=== PATIENT | male | born 1975 | race Caucasian/White ===

== ENCOUNTER 2020-07-12 00:57 | Emergency (ER) | payer OTHER ==
[2020-07-12 02:33] LABS: Absolute Lymphocytes (CBC) 2.7 K/uL (0.7-4.9); Basophils % 0.7 % (0-1.3); Hematocrit 44.1 % (39.6-49.0); Lymphocytes % 35.9 % (15.3-44.8); MPV 8.6 fL (7.6-11.3); RBC Red Blood Cell Count 4.86 M/uL (4.33-5.43)
[2020-07-12 02:42] LABS: Protime INR 0.85
[2020-07-12] MEDS ORDERED: METOPROLOL TAR 50 MG TAB ONE (02:42)
[2020-07-12] MEDS ORDERED: NA CHLORIDE 0.9% 1,000 ML ONE (02:42)
[2020-07-12] MEDS ORDERED: ASPIRIN 81 MG CHEWABLE TABLET ONE (02:42)
[2020-07-12 03:19] LABS: ALT/SGPT 77 U/L (12-78); Albumin 3.6 g/dL (3.4-5.0); Alkaline Phosphatase 113 U/L (45-117); BUN Blood Urea Nitrogen 12 mg/dL (7-18); Bicarbonate 25 mmol/L (21-32); Bilirubin Direct < 0.1 mg/dL (0-0.2); Bilirubin Total 0.2 mg/dL (0.2-1.0); Glucose Level 121 mg/dL (74-106); Lipase 139 U/L (73-393); Protein, Total 6.9 g/dL (6.4-8.2); Sodium Level 139 mmol/L (136-145); Troponin (Emerg Dept Use Only) < 0.02 ng/mL (0.0-0.045)
[2020-07-12 03:21] LABS: AST/SGOT 36 U/L (15-37); Magnesium 2.1 mg/dL (1.8-2.4); NT PRO-BNP < 5 pg/mL (<125); Potassium 3.9 mmol/L (3.5-5.1)
--- NOTE | 2020-07-12 03:48 | EDPHYS ---
Physician Documentation [facility] Name: Johnathon Barger Age: 44 yrs Sex: Male : 1975 Arrival Date: 07/12/2020 Time: 01:01 Bed 19 Private MD: ED Physician Ezio Rodriguez HPI: 07/12 02:08 This 44 yrs old Male presents to ER via EMS with complaints of Dizziness. lin 02:08 The patient presents with dizziness, generalized weakness. Onset: The symptoms/episode lin began/occurred this morning, today. Context: occurred at home. Modifying factors: The symptoms are alleviated by nothing, the symptoms are aggravated by nothing. Associated signs and symptoms: The patient has no apparent associated signs or symptoms. Severity of symptoms: At their worst the symptoms were mild in the emergency department the symptoms are unchanged. Patient's baseline: Neuro: alert and fully oriented. The patient has not experienced similar symptoms in the past. Historical: - Allergies: 01:05 No Known Allergies; sg - PMHx: 01:05 Hypertension; sg - Immunization history:: Adult Immunizations up to date. - Social history:: Patient uses alcohol, Smoking status: unknown. - Family history:: not pertinent. ROS: 02:08 Constitutional: Negative for fever, chills, and weight loss, Eyes: Negative for injury, lni pain, redness, and discharge, ENT: Negative for injury, pain, and discharge, Neck: Negative for injury, pain, and swelling, Cardiovascular: Negative for chest pain, palpitations, and edema, Respiratory: Negative for shortness of breath, cough, wheezing, and pleuritic chest pain, Abdomen/GI: Negative for abdominal pain, nausea, vomiting, diarrhea, and constipation, Back: Negative for injury and pain, : Negative for injury, bleeding, discharge, and swelling, MS/Extremity: Negative for injury and deformity, Skin: Negative for injury, rash, and discoloration, Psych: Negative for depression, anxiety, suicide ideation, homicidal ideation, and hallucinations, Allergy/Immunology: Negative for hives, rash, and allergies, Endocrine: Negative for neck swelling, polydipsia, polyuria, polyphagia, and marked weight changes, Hematologic/Lymphatic: Negative for swollen nodes, abnormal bleeding, and unusual bruising. 02:08 Neuro: Positive for weakness. Exam: 02:08 Constitutional: This is a well developed, well nourished patient who is awake, alert, lin and in no acute distress. Head/Face: Normocephalic, atraumatic. Eyes: Pupils equal round and reactive to light, extra-ocular motions intact. Lids and lashes normal. Conjunctiva and sclera are non-icteric and not injected. Cornea within normal limits. Periorbital areas with no swelling, redness, or edema. ENT: Nares patent. No nasal discharge, no septal abnormalities noted. Tympanic membranes are normal and external auditory canals are clear. Oropharynx with no redness, swelling, or masses, exudates, or evidence of obstruction, uvula midline. Mucous membranes moist. Neck: Trachea midline, no thyromegaly or masses palpated, and no cervical lymphadenopathy. Supple, full range of motion without nuchal rigidity, or vertebral point tenderness. No Meningismus. Chest/axilla: Normal chest wall appearance and motion. Nontender with no deformity. No lesions are appreciated. Cardiovascular: Regular rate and rhythm with a normal S1 and S2. No gallops, murmurs, or rubs. Normal PMI, no JVD. No pulse deficits. Respiratory: Lungs have equal breath sounds bilaterally, clear to auscultation and percussion. No rales, rhonchi or wheezes noted. No increased work of breathing, no retractions or nasal flaring. Abdomen/GI: Soft, non-tender, with normal bowel sounds. No distension or tympany. No guarding or rebound. No evidence of tenderness throughout. Back: No spinal tenderness. No costovertebral tenderness. Full range of motion. Male : Normal genitalia with no discharge or lesions. Skin: Warm, dry with normal turgor. Normal color with no rashes, no lesions, and no evidence of cellulitis. MS/ Extremity: Pulses equal, no cyanosis. Neurovascular intact. Full, normal range of motion. Neuro: Awake and alert, GCS 15, oriented to person, place, time, and situation. Cranial nerves II-XII grossly intact. Motor strength 5/5 in all extremities. Sensory grossly intact. Cerebellar exam normal. Normal gait. Psych: Awake, alert, with orientation to person, place and time. Behavior, mood, and affect are within normal limits. 02:46 ECG was reviewed by the Attending Physician. [facility] Vital Signs: 01:03 BP 132 / 80; Pulse 88; Resp 16; Temp 97.7(O); Pulse Ox 100% on R/A; sg 02:30 BP 133 / 85; Pulse 89; Resp 17; Pulse Ox 98% ; rr5 03:50 BP 114 / 76; Pulse 69; Resp 16; Pulse Ox 98% ; rr5 MDM: 02:00 Patient medically screened. [facility] 02:10 Differential diagnosis: cardiac arrhythmia, generalized weakness, hypovolemia, lin idiopathic dizziness, near-syncope, syncope. Data reviewed: vital signs, nurses notes, lab test result(s), EKG, radiologic studies, plain films. 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 Test interpretation: by ED physician or midlevel provider: ECG, plain radiologic studies. Counseling: I had a detailed discussion with the patient and/or guardian regarding: the historical points, exam findings, and any diagnostic results supporting the discharge/admit diagnosis, the presence of at least one elevated blood pressure reading (>120/80) during this emergency department visit, lab results, radiology results, the need for outpatient follow up. 07/12 02:08 Order name: Basic Metabolic Panel [facility] 07/12 02:08 Order name: CBC with Diff [facility] 07/12 02:08 Order name: LFT's [facility] 07/12 02:08 Order name: Magnesium; Complete Time: 03:47 [facility] 07/12 02:08 Order name: NT PRO-BNP; Complete Time: 03:47 [facility] 07/12 02:08 Order name: PT-INR; Complete Time: 03:01 [facility] 07/12 02:08 Order name: Troponin (emerg Dept Use Only); Complete Time: 03:47 [facility] 07/12 02:08 Order name: XRAY Chest (1 view) [facility] 07/12 02:08 Order name: Lipase; Complete Time: 03:47 [facility] 07/12 02:08 Order name: TSH; Complete Time: 03:47 [facility] 07/12 02:08 Order name: Basic Metabolic Panel; Complete Time: 03:47 EDMS 07/12 02:08 Order name: CBC with Automated Diff; Complete Time: 02:44 EDMS 07/12 02:08 Order name: Liver (Hepatic) Function; Complete Time: 03:47 EDMS 07/12 02:08 Order name: EKG; Complete Time: 02: [facility] 07/12 02:08 Order name: Cardiac monitoring; Complete Time: [facility] 07/12 02:08 Order name: EKG - Nurse/Tech; Complete Time: [facility] 07/12 02:08 Order name: IV Saline Lock; Complete Time: [facility] 07/12 02:08 Order name: Labs collected and sent; Complete Time: [facility] 07/12 02:08 Order name: O2 Per Protocol; Complete Time: [facility] 07/12 02:08 Order name: O2 Sat Monitoring; Complete Time: [facility] EC:46 Rate is 91 beats/min. Rhythm is regular. QRS [place] is Normal. ME interval is normal. QRS lin interval is normal. QT interval is normal. No Q waves. T waves are Normal. No ST changes noted. Clinical impression: Normal ECG and No evidence of ischemia. Interpreted by me. Reviewed by me. Administered Medications: 02: Drug: NS 0.9% 1000 ml Route: IV; Rate: 1 bolus; Site: right forearm; rr5 03:30 Follow up: Response: No adverse reaction; IV Status: Completed infusion; IV Intake: rr5 1000ml 02:28 Drug: Aspirin Chewable Tablet 324 mg Route: PO; rr5 03:25 Follow up: Response: No adverse reaction rr5 02:29 Drug: Lopressor (metoprolol TARTRATE) 50 mg Route: PO; rr5 03:30 Follow up: Response: No adverse reaction; Blood pressure is lowered rr5 Disposition: 07/12/20 03:47 Discharged to Home. Impression: Dizziness and giddiness, Palpitations. - Condition is Stable. - Discharge Instructions: Dizziness, Palpitations, Aspirin and Your Heart, Palpitations, [id number]-[id number], Dizziness, Lumk-wv-Oemw. - Prescriptions for Meclizine 25 mg Oral Tablet - take 1 tablet by ORAL route every 8 hours As needed; 30 tablet. Toprol XL 25 mg Oral Tablet - take 1 tablet by ORAL route once daily; 20 tablet. - Medication Reconciliation Form, Thank You Letter, Antibiotic Education, Prescription Opioid Use form. - Follow up: Private Physician; When: 2 - 3 days; Reason: Recheck today's complaints, Continuance of care, Re-evaluation by your physician. Follow up: Quinn Mtz; When: 2 - 3 days; Reason: Recheck today's complaints, Re-evaluation by your physician. - Problem is new. - Symptoms have improved. Signatures: Dispatcher [employer] EDMauricio Bhatti, RN RN Ezio Landon MD MD cha Roque, Raymond RN RN rr5 Corrections: (The following items were deleted from the chart) 04:07 03:47 07/12/2020 03:47 Discharged to Home. Impression: Dizziness and giddiness; rr5 Palpitations. Condition is Stable. Discharge Instructions: Dizziness, Palpitations, Aspirin and Your Heart, Palpitations, Lhcd-[id number], Dizziness, Eiuc-pw-Eone. Prescriptions for Meclizine 25 mg Oral Tablet - take 1 tablet by ORAL route every 8 hours As needed; 30 tablet, Toprol XL 25 mg Oral Tablet - take 1 tablet by ORAL route once daily; 20 tablet. and Forms are Medication Reconciliation Form, Thank You Letter, Antibiotic Education, Prescription Opioid Use. Follow up: Private Physician; When: 2 - 3 days; Reason: Recheck today's complaints, Continuance of care, Re-evaluation by your physician. Follow up: Qunin Mtz; When: 2 - 3 days; Reason: Recheck today's complaints, Re-evaluation by your physician. Problem is new. Symptoms have improved. lin
--- NOTE | 2020-07-12 03:48 | ER ---
Nurse's Notes [facility] Name: Johnathon Barger Age: 44 yrs Sex: Male : 1975 Arrival Date: 07/12/2020 Time: 01:01 Bed 19 Private MD: Diagnosis: Dizziness and giddiness;Palpitations Presentation: 07/12 01:03 Chief complaint: EMS states: pt reports having had some beer tonight, unsure of how sg many exactly. States having dizziness that began last week, worsening tonight after drinking. States having been diagnosed with high blood pressure but not having the money to get the new prescription for the BP medication. Coronavirus screen: Client denies travel out of the [place] in the last 14 days. Ebola Screen: Patient negative for fever greater than or equal to 101.5 degrees Fahrenheit, and additional compatible Ebola Virus Disease symptoms Patient denies exposure to infectious person. Patient denies travel to an Ebola-affected area in the 21 days before illness onset. No symptoms or risks identified at this time. Initial Sepsis Screen: Does the patient meet any 2 criteria? No. Patient's initial sepsis screen is negative. Does the patient have a suspected source of infection? No. Patient's initial sepsis screen is negative. Risk Assessment: Do you want to hurt yourself or someone else? Patient reports no desire to harm self or others. Onset of symptoms was July 12, 2020. Care prior to arrival: None. Transition of care: patient was not received from another setting of care. 01:03 Acuity: MARK 3 sg 01:03 Method Of Arrival: EMS: [facility] sg Historical: - Allergies: 01:05 No Known Allergies; sg - PMHx: 01:05 Hypertension; sg - Immunization history:: Adult Immunizations up to date. - Social history:: Patient uses alcohol, Smoking status: unknown. - Family history:: not pertinent. Screenin:30 Abuse screen: Denies threats or abuse. Denies injuries from another. Nutritional rr5 screening: No deficits noted. Tuberculosis screening: No symptoms or risk factors identified. Fall Risk IV access (20 points). Total [place]ales Fall Scale indicates No Risk (0-24 pts). Assessment: 02:10 General: Appears in no apparent distress. comfortable, Behavior is calm, cooperative, rr5 appropriate for age. 02:10 Pain: Denies pain. Neuro: Level of Consciousness is awake, alert, obeys commands, rr5 Oriented to person, place, time, Reports dizziness. Cardiovascular: Capillary refill < 3 seconds Patient's skin is warm and dry. Respiratory: Airway is patent Respiratory effort is even, unlabored, Respiratory pattern is regular, symmetrical. : No signs and/or symptoms were reported regarding the genitourinary system. EENT: No signs and/or symptoms were reported regarding the EENT system. Derm: No signs and/or symptoms reported regarding the dermatologic system. Musculoskeletal: Capillary refill < 3 seconds. 02:10 GI: No signs and/or symptoms were reported involving the gastrointestinal system. rr5 03:00 Reassessment: Patient appears in no apparent distress at this time. Patient is alert, rr5 oriented x 3, equal unlabored respirations, skin warm/dry/pink. awaiting for results. 04:00 Reassessment: Patient appears in no apparent distress at this time. Patient is alert, rr5 oriented x 3, equal unlabored respirations, skin warm/dry/pink. discharge instruction given and explained without complaints made Patient states feeling better. Patient states symptoms have improved. Vital Signs: 01:03 BP 132 / 80; Pulse 88; Resp 16; Temp 97.7(O); Pulse Ox 100% on R/A; sg 02:30 BP 133 / 85; Pulse 89; Resp 17; Pulse Ox 98% ; rr5 03:50 BP 114 / 76; Pulse 69; Resp 16; Pulse Ox 98% ; rr5 ED Course: 01:01 Patient arrived in ED. sg 01:05 Triage completed. sg 01:05 Arm band placed on. sg 02:00 Ezio Rodriguez MD is Attending Physician. lin 02:00 Patient has correct armband on for positive identification. Bed in low position. Call rr5 light in reach. radiation monitor on. Pulse ox on. NIBP on. 02:20 Inserted saline lock: 20 gauge in right forearm, using aseptic technique. Blood rr5 collected. 02:22 Myles Low RN is Primary Nurse. rr5 02:25 EKG done, by ED staff, reviewed by Ezio Rodriguez MD. rr5 02:26 XRAY Chest (1 view) In Process Unspecified. EDMS 03:47 Quinn Mtz MD is Referral Physician. lin 04:00 No provider procedures requiring assistance completed. IV discontinued, intact, rr5 bleeding controlled, No redness/swelling at site. Pressure dressing applied. Administered Medications: 02:25 Drug: NS 0.9% 1000 ml Route: IV; Rate: 1 bolus; Site: right forearm; rr5 03:30 Follow up: Response: No adverse reaction; IV Status: Completed infusion; IV Intake: rr5 1000ml 02:28 Drug: Aspirin Chewable Tablet 324 mg Route: PO; rr5 03:25 Follow up: Response: No adverse reaction rr5 02:29 Drug: Lopressor (metoprolol TARTRATE) 50 mg Route: PO; rr5 03:30 Follow up: Response: No adverse reaction; Blood pressure is lowered rr5 Intake: 03:30 IV: 1000ml; Total: 1000ml. rr5 Outcome: 03:47 Discharge ordered by . [facility] 04:00 Discharged to home ambulatory. rr5 04:00 Condition: stable 04:00 Discharge instructions given to patient, Instructed on discharge instructions, follow up and referral plans. medication usage, Demonstrated understanding of instructions, follow-up care, medications, Prescriptions given X 2. 04:07 Patient left the ED. rr5 Signatures: Dispatcher [employer] EDMauricio Bhatti RN RN Ezio Landon MD MD cha Roque, Raymond RN RN rr5 Corrections: (The following items were deleted from the chart) 04:10 04:00 Reassessment: Patient appears in no apparent distress at this time. Patient is rr5 alert, oriented x 3, equal unlabored respirations, skin warm/dry/pink. discharge instruction given and explained without complaints made rr5
[2020-07-12 04:15] VITALS: O2SAT 98
[2020-07-12 04:17] VITALS: TEMP 97.7
[2020-07-12 04:18] VITALS: BP 114/76
--- NOTE | 2020-07-12 08:19 | RAD REPORT ---
EXAM DESCRIPTION: Francoise Single View07/12/2020 2:26 am CLINICAL HISTORY: Chest pain COMPARISON: none FINDINGS: The lungs appear clear of acute infiltrate. The heart is normal size IMPRESSION: No acute abnormalities displayed
--- NOTE | 2020-07-12 16:48 | EKG ---
Test Date: 2020-07-12 Test Time: 02:08:01 Sports Betting Manager: RR MEASUREMENT RESULTS: Intervals: Rate: 91 PA: 154 QRSD: 92 QT: 346 QTc: 425 [place]: P: 21 PA: 154 QRS: 49 T: 28 INTERPRETIVE STATEMENTS: Normal sinus rhythm Normal ECG No previous ECG available for comparison Electronically Signed On 07-12-20 16:47:40 CDT by Quinn Mtz
== END 2020-07-12 04:07 | disposition home or self-care (01) ==
LOC: ER 00:57
DX: R42 Dizziness and giddiness (principal); R00.2 Palpitations; I10 Essential (primary) hypertension
CPT/HCPCS: 36415; 71045; 80048; 80076; 83690; 83735; 83880; 84443; 84484; 85025; 85610; 93005; 96360; 99285; J7030